=== PATIENT | male | born 1955 | race Two or more races ===

== ENCOUNTER 2025-05-15 16:52 | Inpatient (IN) | payer MEDICARE, OTHER ==
[~2025-05-15] VITALS: Ht 162.6 cm; Wt 68.0 kg
[2025-05-15] MEDS ORDERED: HALO5TAB12 PO (17:11)
[2025-05-15] MEDS ORDERED: OLAN15TA6 PO (17:11)
[2025-05-15] MEDS ORDERED: LITH150C PO (17:11)
[2025-05-15] MEDS ORDERED: DOCU250C14 PO (17:11)
[2025-05-15] MEDS ORDERED: BUSP5TAB3 PO (17:11)
[2025-05-15] MEDS ORDERED: ATOR10TA PO (17:11)
[2025-05-15 17:33] LABS: PLATELET COUNT (AUTO) 284 K/uL (152-348); RED BLOOD CELL COUNT(AUTO) 4.45 MIL/uL (4.06-5.63); RED CELL DISTRIBUTION WIDTH 14.9 % (12.1-16.2); WHITE BLOOD COUNT (AUTO) 12.2 K/uL (3.6-10.2)
[2025-05-15 17:36] LABS: *BILIRUBIN,URIN NEGATIVE (NEGATIVE); *CLARITY,URINE CLEAR (CLEAR); *KETONES,URINE TRACE (NEGATIVE); *PROTEIN,URINE NEGATIVE (NEGATIVE); *UROBILINOGEN,URINE 0.2 E.U./dl (NORMAL); LEUKOCYTE ESTERASE ,URINE NEGATIVE (NEGATIVE); NITRITE, URINE NEGATIVE (NEGATIVE); UGLUCOSE NEGATIVE (NEGATIVE)
[2025-05-15 17:44] LABS: CREATININE 1.0 mg/dL (0.6-1.3); SODIUM SERUM 129 mmol/L (136-145); UREA NITROGEN, BLOOD 17 mg/dL (7-18)
[2025-05-15 17:46] LABS: *BLOOD, URINE TRACE (NEGATIVE); *COLOR,URINE LIGHT YELLOW (YELLOW)
[2025-05-15 17:49] LABS: ETHANOL < 3 MG/DL (0-10)
[2025-05-15 17:52] LABS: *AMPHETAMINE, URINE NEGATIVE (NEGATIVE); *BARBITURATE, URINE NEGATIVE (NEGATIVE); *BENZODIAZEPINE, URINE NEGATIVE (NEGATIVE); *CANNABINOID, URINE NEGATIVE (NEGATIVE); *COCCAINE, URINE NEGATIVE (NEGATIVE); *OPIATE, URINE NEGATIVE (NEGATIVE); *PHENCYCLIDINE SCREEN,URINE NEGATIVE (NEGATIVE); FENTANYL, URINE NEGATIVE (NEGATIVE)
[2025-05-15 17:57] LABS: SQUAMOUS EPITHELIAL CELL,UR FEW /HPF (NONE SEEN)
[2025-05-15 17:59] LABS: ASPARTATE AMINOTRANSFERASE 23 U/L (15-37); TOTAL PROTEIN, SERUM 7.7 g/dL (6.4-8.2)
[2025-05-15] MEDS ORDERED: MAG HYDROX/AL HYDROX/SIMETH 30 ML LIQUID UDC PO PRN (23:15)
[2025-05-15] MEDS ORDERED: TEMAZEPAM 7.5 MG CAPSULE PO PRN (23:15)
[2025-05-15] MEDS ORDERED: LORAZEPAM 1 MG TABLET PO PRN (23:15)
[2025-05-15] MEDS ORDERED: MAGNESIUM HYDROXIDE 30 ML LIQUID UDC PO PRN (23:15)
[2025-05-15 23:20] VITALS: BP 109/67; TEMP 98.4; O2SAT 99
[2025-05-15] MEDS: TEMAZEPAM 7.5 MG CAPSULE PO PRN (23:36)
[2025-05-15] MEDS: BLOOD SUGAR DIAGNOSTIC 1 EACH STRIP VI ONE (23:36)
[2025-05-16 08:30] VITALS: BP 108/45; TEMP 98.4; O2SAT 99
[2025-05-16] MEDS: NICOTINE 7 MG/24HR PATCH TD SCH (08:32)
[2025-05-16] MEDS ORDERED: MULT-1119 PO (13:08)
[2025-05-16] MEDS ORDERED: OLAN10TA21 PO (13:22)
[2025-05-16] MEDS: LITHIUM CARBONATE 150 MG CAPSULE PO SCH (14:25)
[2025-05-16] MEDS: HALOPERIDOL 5 MG TABLET PO SCH (16:35)
[2025-05-16 16:56] VITALS: BP 112/70; TEMP 98.4; O2SAT 99
[2025-05-16] MEDS: OLANZAPINE ZYDIS 5 MG TAB.RAPDIS PO SCH (17:23)
[2025-05-16 20:04] VITALS: BP 119/72; TEMP 98.1; O2SAT 95
[2025-05-16] MEDS: TEMAZEPAM 15 MG CAPSULE PO PRN (20:38)
[2025-05-16] MEDS: ATORVASTATIN 10 MG TABLET PO SCH (20:38)
[2025-05-17 07:30] LABS: PLATELET COUNT (AUTO) 307 K/uL (152-348); RED BLOOD CELL COUNT(AUTO) 4.52 MIL/uL (4.06-5.63); RED CELL DISTRIBUTION WIDTH 14.9 % (12.1-16.2); WHITE BLOOD COUNT (AUTO) 7.3 K/uL (3.6-10.2)
[2025-05-17 07:43] LABS: CREATININE 0.8 mg/dL (0.6-1.3); SODIUM SERUM 141.0 mmol/L (136-145); UREA NITROGEN, BLOOD 16.0 mg/dL (7-18)
[2025-05-17 08:18] VITALS: BP 122/72; TEMP 98.1; O2SAT 95
[2025-05-17] MEDS: MULTIVITAMINS,THERAPEUTIC TABLET PO SCH (08:29)
[2025-05-17] MEDS: DOCUSATE SODIUM 250 MG CAPSULE PO SCH (08:29)
[2025-05-17] MEDS: LORAZEPAM 1 MG TABLET PO PRN (12:06)
[2025-05-17 16:13] VITALS: BP 123/88; TEMP 98.1; O2SAT 95
[2025-05-17 20:00] VITALS: BP 83/45; TEMP 98.5; O2SAT 94
[2025-05-18 08:41] VITALS: BP 110/68; TEMP 97.6; O2SAT 99
[2025-05-18 15:51] VITALS: BP 106/75; TEMP 98; O2SAT 99
[2025-05-18 19:58] VITALS: BP 103/60; TEMP 98.4; O2SAT 99
[2025-05-19 08:11] VITALS: BP 117/79; TEMP 98; O2SAT 98
[2025-05-19 15:25] VITALS: BP 94/58; TEMP 98; O2SAT 98
[2025-05-19 19:50] VITALS: BP 135/83; TEMP 97.9; O2SAT 97
[2025-05-19 20:00] VITALS: BP 136/83; TEMP 97.9; O2SAT 97
[2025-05-20 07:55] VITALS: BP 91/61; TEMP 98.2; O2SAT 98
[2025-05-20] MEDS ORDERED: HALOPERIDOL LACTATE 5 MG/1 ML VIAL IM PRN (09:00)
[2025-05-20] MEDS: LITHIUM CARBONATE 150 MG CAPSULE PO SCH (09:17)
[2025-05-20 15:31] VITALS: BP 107/74; TEMP 98; O2SAT 98
[2025-05-20 20:03] VITALS: BP 105/74; TEMP 98.1; O2SAT 99
[2025-05-21 08:07] VITALS: BP 94/57; TEMP 98; O2SAT 96
[2025-05-21] MEDS: ACETAMINOPHEN 325 MG TABLET PO PRN (09:00)
[2025-05-21 15:37] VITALS: BP 100/63; TEMP 98; O2SAT 98
[2025-05-21 20:20] VITALS: BP 108/76; TEMP 98.1; O2SAT 98
[2025-05-22 08:14] VITALS: BP 111/70; TEMP 98.5; O2SAT 99
[2025-05-22 16:31] VITALS: BP 110/72; TEMP 98.5; O2SAT 99
[2025-05-22 19:56] VITALS: BP 101/57; TEMP 98.4; O2SAT 94
[2025-05-23 16:24] VITALS: BP 108/68; TEMP 98.5; O2SAT 99
[2025-05-23 19:59] VITALS: BP 148/92; TEMP 98.6; O2SAT 97
[2025-05-24 08:18] VITALS: BP 130/84; TEMP 98.5; O2SAT 99
[2025-05-24 16:35] VITALS: BP 126/73; TEMP 98.5; O2SAT 99
[2025-05-24 19:43] VITALS: BP 102/58; TEMP 97.8; O2SAT 95
[2025-05-25 08:19] VITALS: BP 102/56; TEMP 98.2; O2SAT 98
[2025-05-25 16:00] VITALS: BP 125/64; TEMP 98.7; O2SAT 97
[2025-05-25 20:01] VITALS: BP 110/69; TEMP 98.2; O2SAT 100
[2025-05-26 08:10] VITALS: BP 127/77; TEMP 98.2; O2SAT 96
== END 2025-05-26 13:45 | DRG 885 ==
LOC: ER 16:52 → GPS 22:36
PROVIDERS: ADMIT Psychiatry & Neurology Psychiatry; ATTEND Student in an Organized Health Care Education/Training Program
DX: F25.0 Schizoaffective disorder, bipolar type (principal); E87.1 Hypo-osmolality and hyponatremia; R45.851 Suicidal ideations; J32.0 Chronic maxillary sinusitis; R26.2 Difficulty in walking, not elsewhere classified; E78.5 Hyperlipidemia, unspecified; J44.9 Chronic obstructive pulmonary disease, unspecified; Z79.899 Other long term (current) drug therapy; D72.829 Elevated white blood cell count, unspecified; M50.30 Other cervical disc degeneration, unspecified cervical region; E03.9 Hypothyroidism, unspecified; Z87.891 Personal history of nicotine dependence; G31.84 Mild cognitive impairment of uncertain or unknown etiology
CPT/HCPCS: 36415; 70030-TC; 70450; 71045; 72125; 83605; 83735; 84100; 84443; 84484; 85025; 85730; 87040; 87086; A9150; G0480

== ENCOUNTER 2025-08-26 16:13 | Inpatient (IN) | payer MEDICARE, OTHER ==
[~2025-08-26] VITALS: Ht 175.3 cm; Wt 68.0 kg
[~2025-08-26 16:13] MED LIST: ATOR10TA PO; DOCU250C14 PO; MULT-1119 PO
[2025-08-26 17:49] LABS: PLATELET COUNT (AUTO) 277 K/uL (152-348); RED BLOOD CELL COUNT(AUTO) 4.66 MIL/uL (4.06-5.63); RED CELL DISTRIBUTION WIDTH 15.1 % (12.1-16.2); WHITE BLOOD COUNT (AUTO) 9.0 K/uL (3.6-10.2)
[2025-08-26 17:55] LABS: CREATININE 0.9 mg/dL (0.6-1.3); SODIUM SERUM 143 mmol/L (136-145); UREA NITROGEN, BLOOD 16 mg/dL (7-18)
[2025-08-26 18:00] VITALS: BP 92/60
[2025-08-26 18:09] LABS: ASPARTATE AMINOTRANSFERASE 13 U/L (15-37); TOTAL PROTEIN, SERUM 7.6 g/dL (6.4-8.2)
[2025-08-26] MEDS ORDERED: LITH300C2 PO (18:41)
[2025-08-26] MEDS ORDERED: OLAN15TA3 PO (18:41)
[2025-08-26] MEDS ORDERED: HALO5TAB PO (18:41)
[2025-08-26] MEDS ORDERED: BUSP10TA3 PO (18:41)
[2025-08-26] MEDS ORDERED: ACET-2605 PO (18:41)
[2025-08-26] MEDS ORDERED: MAGN400O6 PO (18:41)
[2025-08-26 18:51] LABS: *BILIRUBIN,URIN NEGATIVE (NEGATIVE); *BLOOD, URINE NEGATIVE (NEGATIVE); *CLARITY,URINE CLEAR (CLEAR); *COLOR,URINE YELLOW (YELLOW); *KETONES,URINE NEGATIVE (NEGATIVE); *PROTEIN,URINE NEGATIVE (NEGATIVE); *UROBILINOGEN,URINE 0.2 E.U./dl (NORMAL); LEUKOCYTE ESTERASE ,URINE NEGATIVE (NEGATIVE); NITRITE, URINE NEGATIVE (NEGATIVE); UGLUCOSE NEGATIVE (NEGATIVE)
[2025-08-26 19:16] LABS: *AMPHETAMINE, URINE NEGATIVE (NEGATIVE); *BARBITURATE, URINE NEGATIVE (NEGATIVE); *BENZODIAZEPINE, URINE NEGATIVE (NEGATIVE); *CANNABINOID, URINE NEGATIVE (NEGATIVE); *COCCAINE, URINE NEGATIVE (NEGATIVE); *OPIATE, URINE NEGATIVE (NEGATIVE); *PHENCYCLIDINE SCREEN,URINE NEGATIVE (NEGATIVE); FENTANYL, URINE NEGATIVE (NEGATIVE)
[2025-08-26] MEDS: BLOOD SUGAR DIAGNOSTIC 1 EACH STRIP VI ONE (20:45)
[2025-08-26] MEDS ORDERED: TEMAZEPAM 7.5 MG CAPSULE PO PRN ×2 (20:45)
[2025-08-26] MEDS ORDERED: MAGNESIUM HYDROXIDE 30 ML LIQUID UDC PO PRN (20:45)
[2025-08-26] MEDS ORDERED: MAG HYDROX/AL HYDROX/SIMETH 30 ML LIQUID UDC PO PRN (20:45)
[2025-08-26 21:06] VITALS: BP 100/69; TEMP 98.2; O2SAT 98
[2025-08-27] MEDS: LORAZEPAM 1 MG TABLET PO PRN ×2 (09:53→20:47)
[2025-08-27] MEDS: ACETAMINOPHEN 325 MG TABLET PO PRN (09:54)
[2025-08-27] MEDS ORDERED: diphenhydrAMINE 50 MG/1 ML VIAL IM ONE (10:30)
[2025-08-27] MEDS: diphenhydrAMINE 50 MG/1 ML VIAL IM ONE (10:53)
[2025-08-27] MEDS: HALOPERIDOL LACTATE 5 MG/1 ML VIAL IM ONE (10:53)
[2025-08-27] MEDS: LORAZEPAM 2 MG/1 ML VIAL IM ONE (10:53)
[2025-08-27] MEDS: LITHIUM CARBONATE 300 MG CAPSULE PO SCH (14:13)
[2025-08-27 20:25] VITALS: BP 109/79; TEMP 98.4; O2SAT 97
[2025-08-27] MEDS: ATORVASTATIN 10 MG TABLET PO SCH (20:47)
[2025-08-27] MEDS ORDERED: risperiDONE 1 MG/ML UDC PO SCH (21:00)
[2025-08-28] MEDS: DOCUSATE SODIUM 250 MG CAPSULE PO SCH (08:37)
[2025-08-28] MEDS: MULTIVITAMINS,THERAPEUTIC TABLET PO SCH (08:38)
[2025-08-28 08:49] VITALS: BP 104/64; TEMP 98.4; O2SAT 97
[2025-08-28 16:24] VITALS: BP 111/64; TEMP 98.4; O2SAT 97
[2025-08-28 20:46] VITALS: BP 99/61; TEMP 98.1; O2SAT 98
[2025-08-29 08:55] VITALS: BP 101/60; TEMP 98.4; O2SAT 97
[2025-08-29 16:30] VITALS: BP 118/73; TEMP 98.4; O2SAT 97
[2025-08-29 20:22] VITALS: BP 102/70; TEMP 98.1; O2SAT 96
[2025-08-30] MEDS: ENSURE ENLIVE (VAN) 240 ML LIQUID PO SCH (08:25)
[2025-08-30 08:57] VITALS: BP 104/68; TEMP 98.4; O2SAT 97
[2025-08-30 16:48] VITALS: BP 101/66; TEMP 98.4; O2SAT 97
[2025-08-30 19:48] VITALS: BP 95/58; TEMP 98; O2SAT 95
[2025-08-31] MEDS: TEMAZEPAM 15 MG CAPSULE PO PRN (01:09)
[2025-08-31 08:52] VITALS: BP 95/59; TEMP 97.8; O2SAT 100
[2025-08-31 17:51] VITALS: BP 120/72; TEMP 97.9; O2SAT 100
[2025-08-31 19:48] VITALS: BP 118/64; TEMP 98; O2SAT 99
[2025-09-01 09:31] VITALS: BP 116/68; TEMP 98; O2SAT 99
[2025-09-01 15:38] VITALS: BP 130/80; TEMP 98; O2SAT 99
[2025-09-01 20:00] VITALS: BP 122/70; TEMP 98.2; O2SAT 99
[2025-09-02 09:24] VITALS: BP 103/71; TEMP 98; O2SAT 98
[2025-09-02 20:00] VITALS: BP 113/63; TEMP 98; O2SAT 98
[2025-09-03 07:45] VITALS: BP 110/69; TEMP 98; O2SAT 99
[2025-09-03 16:15] VITALS: BP 106/52; TEMP 98; O2SAT 99
[2025-09-03 20:00] VITALS: BP 121/76; TEMP 98.4; O2SAT 100
[2025-09-04 08:32] VITALS: BP 101/51; TEMP 98; O2SAT 99
[2025-09-04 16:29] VITALS: BP 111/58; TEMP 98; O2SAT 99
[2025-09-04 20:38] VITALS: BP 108/75; TEMP 98.1; O2SAT 97
[2025-09-05 08:18] VITALS: BP 119/61; TEMP 98; O2SAT 99
[2025-09-05 16:33] VITALS: BP 97/65; TEMP 98; O2SAT 99
[2025-09-05 19:57] VITALS: BP 116/73; TEMP 98.1; O2SAT 99
[2025-09-06 08:34] VITALS: BP 101/50; TEMP 98; O2SAT 99
== END 2025-09-06 12:24 | DRG 885 ==
LOC: ER 16:19 → GPS 18:42
PROVIDERS: ADMIT Psychiatry & Neurology Psychiatry; ATTEND Internal Medicine
DX: F25.0 Schizoaffective disorder, bipolar type (principal); E03.9 Hypothyroidism, unspecified; M62.50 Muscle wasting and atrophy, not elsewhere classified, unspecified site; E78.5 Hyperlipidemia, unspecified; Z79.899 Other long term (current) drug therapy; Z87.891 Personal history of nicotine dependence; M50.30 Other cervical disc degeneration, unspecified cervical region; G31.84 Mild cognitive impairment of uncertain or unknown etiology; M48.02 Spinal stenosis, cervical region; J32.9 Chronic sinusitis, unspecified
CPT/HCPCS: 36415; 70030-TC; 85025; J1200; J1630; J2060